=== PATIENT | female | born 2000 | race Caucasian/White ===

== ENCOUNTER 2018-06-20 15:57 | Emergency (ER) | payer BC, SELFPAY ==
[2018-06-20 16:06] VITALS: BP 136/98; PULSE 125; RESP 16; TEMP 36.8; O2SAT 95
--- NOTE | 2018-06-20 16:12 | DI.CT_ITS ---
SYMPTOM/DIAGNOSIS: RLQ PAIN, R/O APPE ABDOMINAL AND PELVIC CT : 06/20/18 CT examination of the abdomen and pelvis was performed with a bolus infusion of 100 cc Omnipaque 350. Images obtained through the lung bases are unremarkable. Liver and spleen appear normal. Pancreas appears intact. No biliary dilatation and the gallbladder is CT normal. Abdominal aorta is of normal diameter and no major vascular abnormality is seen. No significant abdominal wall hernia seen. No abdominal or pelvic adenopathy. Adrenals and kidneys are unremarkable. No urinary tract calcification or obstruction. Appendix is normal. No evidence of bowel obstruction or diverticulitis. Unremarkable appearance of the left ovary and uterus. 4.4 cm in diameter fluid collection of right adnexa may represent ovarian cyst, hemorrhagic cyst, or other etiologies including abscess or neoplasm. CONCLUSION: 4 cm low attenuation right adnexal mass. Pelvic ultrasound suggested for correlation.
[2018-06-20 16:35] LABS: Bilirubin Negative (Negative); Blood Small (Negative); Clarity Clear; Glucose Negative (Negative); Ketones Trace mg/dL (Negative); Leukocyte Esterase Negative (Negative); Nitrite Negative (Negative)
[2018-06-20 16:40] LABS: Absolute Basophil Count 0.05 k/cumm (0.0-0.2); Absolute Eosinophil Count 0.09 k/cumm (0.0-0.7); Absolute Lymphocyte Count 1.14 k/cumm (1.2-3.4); Absolute Monocyte Count 0.44 k/cumm (0.11-0.7); Basophils % 1.5; Eosinophils % 2.6; HCT 41.2 % (36.0-46.0); HGB 14.7 g/dL (12.0-15.5); Lymphocytes % 33.3; Mean Corp. HGB Concentration 35.7 g/dL (32.0-36.0); Mean Corpuscular Hemoglobin 31.6 pg (27.0-33.0); Mean Corpuscular Volume 88.6 fL (80-95); Monocytes % 12.9; Neutrophils % 49.7; Platelet Count 289 x1000/uL (130-400); RBC 4.65 m/cumm (4.00-5.20); RBC Distribution Width 12.1 % (11.7-14.6); White Blood Cell Count 3.42 k/cumm (4.4-10.8)
[2018-06-20] MEDS: Normal Saline 1,000 ML 1000 ML IV (16:43)
[2018-06-20 16:45] LABS: Bacteria Negative HPF (Negative); C & S Indicated? No; Casts Negative LPF (Negative); Crystals Negative HPF (Negative); Epithelial Cells Few HPF (Negative); Mucus Negative (Negative); Other Cells Negative (Negative); RBC 0-2 (0-2); WBC Negative HPF (0-5)
[2018-06-20] MEDS: Ketorolac 30 MG/ML VIAL IVP (16:45)
[2018-06-20] MEDS: ACETAMINOPHEN 1,000 MG/100 ML BTL 400 MG IVPB (16:46)
[2018-06-20] MEDS: Omnipaque 350 MG/ML 100 ML BTL IJ (17:16)
[2018-06-20 17:19] LABS: ALT 20 U/L (12-78); AST 13 U/L (15-37); Albumin 4.1 g/dL (3.4-5.0); Alkaline Phosphatase 51 U/L (46-116); Anion Gap 8.6 mmol/L (3-11); BUN 9 mg/dL (7-18); Bilirubin, Total 0.4 mg/dL (0.2-1.0); CO2 27.4 mmol/L (21.0-32.0); CREATININE 0.78 mg/dL (0.55-1.02); Chloride 104 mmol/L (98-107); Glucose 92 mg/dL (70-100); Lipase 89 U/L (73-393); Potassium 3.5 mmol/L (3.5-5.1); Sodium 140 mmol/L (136-145); Total Protein 7.2 g/dL (6.4-8.2)
--- NOTE | 2018-06-20 17:28 | DI.VRAD_ITS ---
EXAM: CT Abdomen and Pelvis With Contrast EXAM DATE/TIME: 06/20/2018 4:15 PM CLINICAL HISTORY: 17 years old, female; Abdominal pain TECHNIQUE: Imaging protocol: Axial computed tomography images of the abdomen and pelvis with intravenous contrast. Coronal and sagittal reformatted images were created and reviewed. COMPARISON: No relevant prior studies available. FINDINGS: ABDOMEN: Liver: Normal. No mass. Gallbladder and bile ducts: Normal. No calcified stones. No ductal dilation. Pancreas: Normal. No ductal dilation. Spleen: Normal. No splenomegaly. Adrenals: Normal. No mass. Kidneys and ureters: Normal. No hydronephrosis. Stomach and bowel: Normal. No obstruction. No mucosal thickening. Appendix: No evidence of appendicitis. PELVIS: Bladder: Unremarkable as visualized. Reproductive: Follicles in the left ovary. ABDOMEN and PELVIS: Intraperitoneal space: Right adnexal fluid collection measuring 4.4 cm. Abscess or ovarian cyst is suspected. Bones/joints: No acute fracture. No dislocation. Soft tissues: Unremarkable. Vasculature: Normal. No abdominal aortic aneurysm. Lymph nodes: Normal. No enlarged lymph nodes. IMPRESSION: Right adnexal fluid collection measuring 4.4 cm. Abscess or ovarian cyst is suspected. Dictated and Authenticated by: Autumn Tinoco MD. Ordering:KAMILLE Robertson MD
[2018-06-20 17:42] LABS: Calcium 9.1 mg/dL (8.5-10.1)
--- NOTE | 2018-06-20 19:08 | ED.GENADUL_ITS ---
Discharge Plan Disposition Patient Disposition: HOME Condition: Serious Discharge Details Chief Complaint: Abd Prob Clinical Impression: Pelvic pain, Abdominal pain, RLQ Primary Care Provider: Marcelo Pizano ED Provider: Marcelo Gottlieb Home Meds and New Rx's Prescriptions: No Action methylphenidate HCl 10 mg tablet 10 mg PO DAILY MDD 10 mg Qty: 30 RF: 0 methylphenidate HCl 36 mg tablet extended release 24hr 36 mg PO DAILY MDD 1 Qty: 30 RF: 0 bupropion HCl 300 mg tablet extended release 24 hr 300 mg PO QAM Qty: 30 RF: 3 Discharge Instructions Instructions: Ovarian Cyst (ED), Appendicitis (GEN), Pelvic Pain (ED), Ovarian Abscess (ED) Additional Instructions: At this time you have elected to go home. You will be contacted in the morning for an early ultrasound of your pelvis for further evaluation. You need to follow-up in the ED immediately afterwards. In the meantime if you have any worsening of your pain whatsoever please return immediately here or to [facility] for evaluation. I have included information on concerning pathologies which can present with this sort of pain. If you notice any worsening of your symptoms, or any new symptoms such as vomiting, diarrhea, fever, chills, shortness of breath, chest pain, numbness, weakness, or fainting , please return immediately to the emergency department for reevaluation. For your pain you can take a maximum of 1000 mg of Tylenol every 6 hours and a maximum of 800 mg of ibuprofen every 6 hours As always, it was a pleasure participating in your medical care today. Discharge Data Discharge Date/Time-TO BE ENTERED AT DEPARTURE: 06/20/18 19:15 Medical Decision Making This is a 17-year-old female with no significant past medical history except for oral contraceptive use and ADHD and previous ovarian cyst who presents today for evaluation of right-sided levi pain. She was sent by her PCP for evaluation/rule out of appendicitis. Pain is moderate in severity, located in the right lower quadrant, worse with palpation. Patient is currently on her. And does have a small amount of spotting. Initial assessment demonstrates mild tachycardia, reproducible right lower quadrant abdominal pain, but an otherwise well-appearing female. Differential includes appendicitis, versus ovarian cyst. Signs and symptoms appear clinically inconsistent with torsion at this time. The patient states that she is a lesbian, not sexually a ctive, and has never had vaginal penetration including speculum exam. I doubt tubo-ovarian abscess or PID as the cause of her symptoms. I did offer a pelvic exam, however because of the patient's intact hymen and lack of historical vaginal penetrance, the patient is currently refusing a pelvic exam out of concern for the pain that it may cause. A long discussion with her and her mother regarding the risks of avoiding a pelvic exam at this time, including the decreased diagnostic capabilities, and the patient and family understand. We will get a CT scan to rule out appendectomy, evaluate for ovarian etiology, treat pain with NSAIDs, rehydrate, and reassess. 1900 After NSAIDs the patient is feeling much better, heart rate has returned to normal. She remains afebrile, respirations normal, blood pressure normal. CT scan has returned demonstrates no clinical evidence of acute appendicitis per virtual radiologist. There is evidence of a 4 cm right-sided ovarian cyst versus abscess. Patient's white count is 3, no bandemia or left shift. Electrolytes normal, urinalysis normal, test negative. Signs and symptoms at this time appearing consistent with a tubo-ovarian abscess as she has no history or risk factors for STD. White count and laboratory work-up are inconsistent with abscess. Eversion is on the differential however less likely as her symptoms appear inconsistent with this at this time, and if this is relatively small. Currently we have no ultrasound available for further differentiation. I did contact Dr. Elise the obstetrics counsellors on-call, di d ask for her to come and evaluate the patient, however instead her recommendation is that if it is a cyst she is stable for discharge, however if there is concern for torsion she would like the patient to be transferred to a different facility for emergent ultrasound rather than in-house observation by OB, serial exams, or ultrasound in the morning. I iterated this plan to the patient, obstetrics counsellors concerns, risks and benefits of transfer. After a long discussion with the patient and her family the patient states that she is feeling much better, and would like to hold off on any transfer at this time. She states that she would like to go home and would prefer to come back in the morning for ultrasound. With family at bedside I discussed the risks of this plan, including the risks of potential negative outcomes, requiring surgery, oophorectomy, or the worst case scenario . The patient and family understand this, they are willing to accept the risks at this time. The patient is feeling much better, vital signs remain normal and reassuring. Respecting the patient's wishes and understanding the risks, patient will be discharged with a prompt ultrasound tomorrow morning. Had a long discussion with her regarding the absolute importance of immediate return here or to [facility] if she has return or worsening of her symptoms. I also again offered a vaginal exam and the patient is refusing at this time, citing the potential for pain, and the preference to avoid any current elevated examination. I have extensively reviewed the treatment plan and discharge instructions with the patient and their family. I have addressed all patient concerns at this time. The patient and family was made aware of what symptoms to monitor for that would warrant a return to the emergency department. Discussed the plan with the patient and family, they demonstrate verbal understanding and agreement with our assessment and plan at this time. FINDINGS: ABDOMEN: Liver: Normal. No mass. Gallbladder and bile ducts: Normal. No calcified stones. No ductal dilation. Pancreas: Normal. No ductal dilation. Spleen: Normal. No splenomegaly. Adrenals: Normal. No mass. Kidneys and ureters: Normal. No hydronephrosis. Stomach and bowel: Normal. No obstruction. No mucosal thickening. Appendix: No evidence of appendicitis. PELVIS: Bladder: Unremarkable as visualized. Reproductive: Follicles in the left ovary. ABDOMEN and PELVIS: Intraperitoneal space: Right adnexal fluid collection measuring 4.4 cm. Abscess or ovarian cyst is suspected. Bones/joints: No acute fracture. No dislocation. Soft tissues: Unremarkable. Vasculature: Normal. No abdominal aortic aneurysm. Lymph nodes: Normal. No enlarged lymph nodes. IMPRESSION: Right adnexal fluid collection measuring 4.4 cm. Abscess or ovarian cyst is suspected. Dictated and Authenticated by: Autumn Tinoco MD. Ordering:KAMILLE Robertson MD [facility] General Date/Time Provider Initiated Documentation: 06/20/18 16:12 . HPI Narrative: This is a 17-year-old female with no significant past medical history except for ADHD and oral contraceptive use who presents today for evaluation of right lower quadrant abdominal pain. She has been sent over by her nuclear operations specialist to rule out appendicitis. Patient has had right lower abdominal pain the last 12 the 24 hours. She denies any documented fever but does admit to feeling some mild chills. She has had one episode of nausea/dry heaving, she has had no vomiting or diarrhea. He has not eaten anything today due to her symptoms. She describes the pain as a knifelike sensation in her right lower quadrant. She is currently on her period. She states that she has had ovarian cyst before and they do not feel like this. She denies any vaginal discharge aside for a small amount of spotting. She denies any other complaints at this time. She denies previous abdominal surgeries. Socially she does state that she is a lesbian, and has never had anal intercourse, is not sexually active, and has never had a speculum exam. Related Data Home Medications Medication Instructions Recorded Confirmed methylphenidate 10 mg tablet 10 mg PO DAILY #30 tab MDD 10 mg 05/08/18 06/20/18 methylphenidate ER 36 mg 36 mg PO DAILY #30 tab MDD 1 05/08/18 06/20/18 tablet,extended release 24 hr bupropion HCl XL 300 mg 24 hr 300 mg PO QAM #30 tab 06/12/18 06/20/18 tablet, extended release Previous Rx's Medication Instructions Recorded methylphenidate 10 mg tablet 10 mg PO DAILY #30 tab MDD 10 mg 05/08/18 methylphenidate ER 36 mg 36 mg PO DAILY #30 tab MDD 1 05/08/18 tablet,extended release 24 hr bupropion HCl XL 300 mg 24 hr 300 mg PO QAM #30 tab 06/12/18 tablet, extended release Allergies Allergy/AdvReac Type Severity Reaction Status Date / Time No Known Allergies Allergy Verified 06/20/18 16:10 General Stated Complaint: Abd Prob MATTHEW: 3 Review of Systems Review of Systems All systems reviewed & are unremarkable except as noted in HPI and below PFSH Medical History ADHD (attention deficit hyperactivity disorder) (Acute) Anxiety Chronic otitis media Sever's disease TMJ arthralgia Family History Mother Mental disorder Ovarian cyst Fibrocystic breast changes Other Heart disease Father Essential hypertension Grandparent Substance abuse Essential hypertension Heart disease Mental disorder Social History Smoking/Tobacco Use Status: Never Alcohol Intake: current Substance use type: does not use Do you feel safe in your relationship?: Yes Exam Narrative Exam Narrative: 1.Const: Well-nourished, Well-developed, appearing stated age 2.Eyes: PERRL, no conjunctival injection, and symmetrical lids. 3.ENT: Atraumatic external nose and ears. Moist MM. Neck: Symmetric, trachea midline, No thyromegaly. 4.CVS: +S1/S2, No murmurs or gallops. Peripheral pulses 2+ and equal in all extremities. Brisk capillary refill in all extremities. 5.RESP: Unlabored respiratory effort. Clear to auscultation bilaterally. No wheezes rales or rhonchi 6.GI: Soft, nondistended. No guarding or rebound. Reproducible tenderness is present in the right lower abdominal quadrant. Minimal right-sided pelvic tenderness. No flank or CVA tenderness. Pain is present at McBurney's point, negative Estrella sign. Negative obturator and psoas sign. Negative heel strike test. Vaginal and speculum exam was refused by patient. 7.MSK: Normocephalic/Atraumatic, Extremities w/o deformity or ttp No cyanosis or clubbing, Normal movement of all extremities 8.Skin: Warm, Dry. No rashes or lesions. 9.Neuro: mine superintendent II-XII grossly intact. Sensation grossly intact, no focal neurologic deficits. 10.Psych: (AAO) x3. Appropriate mood and affect Course Vital Signs Temperature 36.8 C 06/20/18 16:06 Pulse 125 H 06/20/18 16:06 Respiratory Rate 16 06/20/18 16:06 Blood Pressure 136/98 H 06/20/18 16:06 Pulse Oximetry 95 06/20/18 16:06 Temperature 36.8 C 06/20/18 16:06 Temperature Source Skin 06/20/18 16:06 Pulse 125 H 06/20/18 16:06 Respiratory Rate 16 06/20/18 16:06 Respiratory Effort Non-Labored 06/20/18 16:13 Blood Pressure 136/98 H 06/20/18 16:06 Pulse Oximetry 95 06/20/18 16:06 Pain Level 5 06/20/18 16:45 Lab/Test Results Lab/Test Results: Laboratory Tests Range/Units 06/20/18 06/20/18 06/20/18 16:20 16:39 16:39 WBC (4.4-10.8) k/cumm 3.42 L RBC (4.00-5.20) m/cumm 4.65 Hgb (12.0-15.5) g/dL 14.7 Hct (36.0-46.0) % 41.2 MCV (80-95) fL 88.6 MCH (27.0-33.0) pg 31.6 MCHC (32.0-36.0) g/dL 35.7 RDW (11.7-14.6) % 12.1 Plt Count (130-400) x1000/uL 289 MPV (8.0-11.0) fL 10.0 Immature Gran % 0.0 Neutrophils % 49.7 Lymphocytes % 33.3 Monocytes % 12.9 Eosinophils % 2.6 Basophils % 1.5 Absolute Neutrophils (1.2-6.7) k/cumm 1.70 Absolute Lymphocytes (1.2-3.4) k/cumm 1.14 L Absolute Monocytes (0.11-0.7) k/cumm 0.44 Absolute Eosinophils (0.0-0.7) k/cumm 0.09 Absolute Basophils (0.0-0.2) k/cumm 0.05 Sodium (136-145) mmol/L 140 Potassium (3.5-5.1) mmol/L 3.5 Chloride (98-107) mmol/L 104 Carbon Dioxide (21.0-32.0) mmol/L 27.4 Anion Gap (3-11) mmol/L 8.6 BUN (7-18) mg/dL 9 Creatinine (0.55-1.02) mg/dL 0.78 Estimated GFR/1.73 m2 (mL/min/1.73m2) >= 60.00 Glucose (70-100) mg/dL 92 Calcium (8.5-10.1) mg/dL 9.1 Total Bilirubin (0.2-1.0) mg/dL 0.4 AST (15-37) U/L 13 L ALT (12-78) U/L 20 Alkaline Phosphatase (46-116) U/L 51 Total Protein (6.4-8.2) g/dL 7.2 Albumin (3.4-5.0) g/dL 4.1 Lipase (73-393) U/L 89 Urine Color (Yellow) Yellow Urine Clarity Clear Urine pH (5-8) 7.0 Ur Specific [place] (1.005-1.025) 1.020 Urine Protein (Negative) mg/dL Negative Urine Ketones (Negative) mg/dL Trace H Urine Blood (Negative) Small H Urine Nitrite (Negative) Negative Urine Bilirubin (Negative) Negative Urine Urobilinogen (Up TO 0.2) EU/dL 1.0 H Ur Leukocyte Esterase (Negative) Negative Urine RBC (0-2) 0-2 Urine WBC (0-5) HPF Negative Ur Epithelial Cells (Negative) HPF Few Urine Crystals (Negative) HPF Negative Urine Bacteria (Negative) HPF Negative Urine Casts (Negative) LPF Negative Urine Mucus (Negative) Negative Urine Other (Negative) Negative Ur Culture Indicated? No Urine Glucose (Negative) mg/dL Negative POC- Test(urine) Negative
[2018-06-20 19:15] VITALS: BP 126/83; PULSE 83; RESP 14; TEMP 37; O2SAT 96
== END 2018-06-20 19:15 | disposition home or self-care (01) ==
PROVIDERS: Emergency Provider Student in an Organized Health Care Education/Training Program; PCP Pediatrics
DX: R10.2 Pelvic and perineal pain (principal); R10.31 Right lower quadrant pain; R19.8 Other specified symptoms and signs involving the digestive system and abdomen
CPT/HCPCS: 36415; 80053; 81025; 83690; 96361; 96374; 99284; 74177; 81003; 81015; 85025; J0131; J1885; J3490

== ENCOUNTER 2018-06-21 10:23 | Outpatient (CLI) | payer BC, SELFPAY ==
--- NOTE | 2018-06-21 09:25 | DI.US_ITS ---
SYMPTOM/DIAGNOSIS: RLQ PAIN PELVIC ULTRASOUND 06/21 Pelvic ultrasound was performed transadominally only. Uterus is unremarkable in appearance with a normal appearing endometrial stripe. The left ovary has a normal follicular appearance and measures 26 x 20 x 22 mm. Right ovary contains a 35 mm in diameter simple cyst presumably representing a functional cyst. Right ovary measures 44 x 39 x 33 mm. No free fluid identified in the cul de sac. Limited scanning of the kidneys is unremarkable. CONCLUSION: 35 mm in diameter simple cyst of the right ovary presumably representing a functional cyst. No additional findings.
== END 2018-06-21 10:43 ==
PROVIDERS: PCP Pediatrics; Visit Provider Student in an Organized Health Care Education/Training Program
DX: R10.31 Right lower quadrant pain (principal); N83.291 Other ovarian cyst, right side
CPT/HCPCS: 76856